=== PATIENT | female | born 1950 | race Caucasian/White ===

== ENCOUNTER 2019-07-08 18:48 | Emergency (ER) | payer MEDICARE ==
[~2019-07-08] VITALS: Ht 165.1 cm; Wt 59.0 kg
[2019-07-08] MEDS ORDERED: FAMOTIDINE 20 MG/2 ML VIAL ONE (19:12)
[2019-07-08] MEDS ORDERED: FAMOTIDINE 20 MG/2 ML VIAL IVP ONE (19:15)
--- NOTE | 2019-07-08 19:16 | PHYS DOC ---
Past Medical History Past Medical History: Diabetes-Type II, GERD, Hypertension Smoking: Less than 1pk/day Adult General Chief Complaint Chief Complaint: CHEST PAIN HPI HPI Patient is a 69 year old female who was brought here by EMS for evaluation of SEVERE substernal chest pain that radiated to her back that been going on all day long today. Patient denies any nausea or vomiting, no trouble breathing. Patient denies any cough or fever. And also complaint of left scapular pain. SHe has history hypertension, diabetic. Patient is a smoker. She has history of enlarged heart. aLL OTHER ros IS NEGATIVE UNLESS OTHERWISE NOTED IN hpi Review of Systems Review of Systems See above Current Medications Current Medications Current Medications Medications (Trade) Dose Ordered Sig/Erin Start Time Stop Time Status Last Admin Dose Admin Famotidine (Pepcid Vial) 20 mg STK-MED ONCE 07/08/19 19:12 07/08/19 19:12 DC Fentanyl Citrate (Fentanyl 2ml Vial) 75 mcg 1X ONCE 07/08/19 22:15 07/08/19 22:16 DC 07/08/19 21:54 75 MCG Hydromorphone HCl (Dilaudid) 1 mg 1X ONCE 07/08/19 22:00 07/08/19 22:01 DC Info (CONTRAST GIVEN -- Rx MONITORING) 1 each PRN DAILY PRN 07/08/19 20:45 07/10/19 20:44 Iohexol (Omnipaque 350 Mg/ml) 100 ml 1X ONCE 07/08/19 20:30 07/08/19 20:33 DC 07/08/19 20:30 100 ML Magnesium Sulfate 50 ml @ 25 mls/hr 1X ONCE 07/08/19 21:30 07/08/19 23:29 07/08/19 21:54 25 MLS/HR Metoprolol Tartrate (Lopressor Vial) 5 mg 1X ONCE 07/08/19 22:30 07/08/19 22:31 DC Multi-Ingredient Mouthwash/Gargle (Gi Cocktail) 20 ml 1X ONCE 07/08/19 20:30 07/08/19 20:31 DC 07/08/19 20:31 20 ML Nicardipine HCl 50 mg/Sodium Chloride 250 ml @ 25 mls/hr CONT PRN 07/08/19 22:45 UNV Nitroglycerin (Nitrostat) 0.4 mg PRN Q5MIN PRN 07/08/19 19:30 07/08/19 19:58 0.4 MG Ondansetron HCl (Zofran) 4 mg 1X ONCE 07/08/19 22:00 07/08/19 22:01 DC Potassium Chloride (Klor-Con) 40 meq 1X ONCE 07/08/19 21:30 07/08/19 21:31 DC 07/08/19 21:54 40 MEQ Allergies Allergies Allergies Coded Allergies Type Severity Reaction Last Updated Verified No Known Drug Allergies 07/08/19 No Physical Exam Physical Exam See above Constitutional: Well developed, well nourished, IN MILD acute distress DUE TO PAIN, non-toxic appearance. [] HENT: Normocephalic, atraumatic, bilateral external ears normal, oropharynx moist, no oral exudates, nose normal. [] Eyes: PERRLA, EOMI, conjunctiva normal, no discharge. [] Neck: Normal range of motion, no tenderness, supple, no stridor. [] Cardiovascular:Heart rate regular rhythm, no murmur, BILATERAL JVD. Lungs & Thorax: Bilateral breath sounds clear to auscultation [] Abdomen: Bowel sounds normal, soft, no tenderness, no masses, no pulsatile masses. [] Skin: Warm, dry, no erythema, no rash. [] Back: No tenderness, no CVA tenderness. [] Extremities: No tenderness, no cyanosis, no clubbing, ROM intact, no edema. [] Neurologic: Alert and oriented X 3, normal motor function, normal sensory function, no focal deficits noted. [] Psychologic: Affect normal, judgement normal, mood normal. [] Current Patient Data Vital Signs Vital Signs Date Time Temp Pulse Resp B/P (MAP) Pulse Ox O2 Delivery O2 Flow Rate FiO2 07/08/19 21:58 92 18 181/96 (124) 98 Nasal Cannula 2.0 07/08/19 18:56 99.0 99.0 Lab Values Laboratory Tests Test 07/08/19 18:55 07/08/19 21:31 White Blood Count 9.8 x10^3/uL (4.0-11.0) Red Blood Count 4.72 x10^6/uL (3.50-5.40) Hemoglobin 14.5 g/dL (12.0-15.5) Hematocrit 42.4 % (36.0-47.0) Mean Corpuscular Volume 90 fL (79-100) Mean Corpuscular Hemoglobin 31 pg (25-35) Mean Corpuscular Hemoglobin Concent 34 g/dL (31-37) Red Cell Distribution Width 13.0 % (11.5-14.5) Platelet Count 302 x10^3/uL (140-400) Neutrophils (%) (Auto) 72 % (31-73) Lymphocytes (%) (Auto) 18 % (24-48) L Monocytes (%) (Auto) 6 % (0-9) Eosinophils (%) (Auto) 3 % (0-3) Basophils (%) (Auto) 1 % (0-3) Neutrophils # (Auto) 7.1 x10^3/uL (1.8-7.7) Lymphocytes # (Auto) 1.8 x10^3/uL (1.0-4.8) Monocytes # (Auto) 0.6 x10^3/uL (0.0-1.1) Eosinophils # (Auto) 0.3 x10^3/uL (0.0-0.7) Basophils # (Auto) 0.1 x10^3/uL (0.0-0.2) Sodium Level 139 mmol/L (136-145) Potassium Level 3.0 mmol/L (3.5-5.1) L Chloride Level 99 mmol/L (98-107) Carbon Dioxide Level 35 mmol/L (21-32) H Anion Gap 5 (6-14) L Blood Urea Nitrogen 16 mg/dL (7-20) Creatinine 0.6 mg/dL (0.6-1.0) Estimated GFR (Cockcroft-Gault) 99.4 BUN/Creatinine Ratio 27 (6-20) H Glucose Level 167 mg/dL (70-99) H Calcium Level 9.4 mg/dL (8.5-10.1) Magnesium Level 1.6 mg/dL (1.8-2.4) L Total Bilirubin 0.3 mg/dL (0.2-1.0) Aspartate Amino Transferase (AST) 22 U/L (15-37) Alanine Aminotransferase (ALT) 23 U/L (14-59) Alkaline Phosphatase 59 U/L (46-116) Troponin I Quantitative < 0.017 ng/mL (0.000-0.055) DT-Wmb-N-Type Natriuretic Peptide 88 pg/mL (0-124) Total Protein 7.6 g/dL (6.4-8.2) Albumin 4.0 g/dL (3.4-5.0) Albumin/Globulin Ratio 1.1 (1.0-1.7) Lipase 114 U/L (73-393) Urine Collection Type Unknown Urine Color Yellow Urine Clarity Cloudy Urine pH 7.0 Urine Specific Phyllis 1.020 Urine Protein Negative mg/dL (NEG-TRACE) Urine Glucose (UA) Negative mg/dL (NEG) Urine Ketones (Stick) Negative mg/dL (NEG) Urine Blood Negative (NEG) Urine Nitrite Negative (NEG) Urine Bilirubin Negative (NEG) Urine Urobilinogen Dipstick 0.2 mg/dL (0.2 mg/dL) Urine Leukocyte Esterase Negative (NEG) Urine RBC 1-2 /HPF (0-2) Urine WBC 1-4 /HPF (0-4) Urine Squamous Epithelial Cells Few /LPF Urine Bacteria 0 /HPF (0-FEW) Urine Mucus Slight /LPF Laboratory Tests 07/08/19 18:55 Laboratory Tests 07/08/19 18:55 EKG EKG EKG WAS READ BY THIS PHYSICIAN AT 1858, RATE OF 82 BPM, INCOMPLETE RBBB, NO STEMI... Radiology/Procedures Radiology/Procedures [][facility] [address] [place] [address] IMAGING REPORT Signed PATIENT: TANI VEGAS LACCOUNT: [id number] : 1950 LOCATION: ER AGE: 69 SEX: F EXAM STATUS: REG ER ORD. PHYSICIAN: HAILEY WALTER DO REASON: CHEST PAIN PROCEDURE: PORTABLE CHEST 1V Indication: Chest pain TECHNIQUE:Portable AP chest X-ray COMPARISON: None FINDINGS: Heart is normal in size. Lungs are clear. No pneumothorax or pleural effusion. Visualized bony thorax within normal limits. IMPRESSION: No acute pulmonary process. Electronically signed by: Nikos Juárez DO (07/08/2019 8:47 PM) [facility] DICTATED and SIGNED BY: NIKOS JUÁREZ DO DATE: 07/08/192046 [facility] [address] [place] [address] IMAGING REPORT Signed PATIENT: TANI VEGAS LACCOUNT: [id number] : 1950 LOCATION: ER AGE: 69 SEX: F EXAM STATUS: REG ER ORD. PHYSICIAN: HAILEY WALTER DO REASON: CHEST PAIN, EPIGASTRIC ABDOMINAL PAIN, PROCEDURE: CT ANGIO CHEST ABD PELVIS Study: 1. CT angiography of the chest 2. CT angiography of the abdomen/pelvis History: Chest pain. Epigastric abdominal pain. Comparison: None. Technique: Helical CT of the chest, abdomen and pelvis performed both prior to and after the administration of 100 cc Omnipaque 350 intravenous contrast utilizing angiography protocol. Coronal and sagittal 3D MIP reformations were obtained. One or more of the following individualized dose reduction techniques were utilized for this examination: 1. Automated exposure control 2. Adjustment of the mA and/or kV according to patient size 3. Use of iterative reconstruction technique. Findings: Chest: Penetrating atheromatous ulcer along the left lateral margin of the descending aorta as seen on image 57 series 4. Associated intramural hematoma extending from the aortic arch at the level of the left internal carotid artery origin and becoming less distinct in the region of the celiac and SMA origins. The great vessel origins are patent. At the arch the hematoma measures approximately 8 mm in thickness. In the region of the diaphragmatic hiatus, crescentic increased density along the anterior margin of the aorta measures approximately 6 mm in thickness. Kinking of the left subclavian artery in the region of the anterior first rib but without significant stenosis. No pericardial effusion. Small right upper lobe nodule on image 40 series 4 measuring 4 mm. Fissural nodule at the right middle lobe on image 63 series 4 measuring 4 mm. Small left thyroid lobe nodule not meeting size criteria for follow-up. Advanced arthrosis at the shoulders. Multifocal degenerative changes scattered throughout the spinal column. Abdomen/pelvis: Multifocal calcified and noncalcified atheromatous plaque throughout the abdominal aorta and bilateral iliofemoral systems. Long segment dilatation of the celiac artery distal to its origin but without stenosis at the origin. Patent SMA origin. Patent RUFINO origin. Single renal artery supply on the right with a patent ostia. Dual renal artery supply on the left without severe ostial stenosis. No focal abnormality of the liver. The gallbladder surgically absent. Unremarkable pancreas. 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 Adrenal gland hyperplasia without discrete nodule. Scattered small renal cystic foci some of which are too small to fully characterize. Focal area of cortical thinning involving the posterior medial aspect of the right kidney suggestive of scarring, image 108 series 4. No hydroureteronephrosis. Regions of the urinary bladder wall thickening. No discrete uterine or adnexal mass. Constipated state with well-formed stool distributed throughout the colon. There is some fluid within the colon proximally. Nonobstructed small bowel. No concerning abnormality of the incompletely evaluated stomach. Lipoma seen extending caudally from the right gluteus medius, image 190 series 4, without aggressive features by CT. Additional fat-containing lesion at the left flank, image 114 series 4 with thin internal septation. Osteopenia. Multifocal degenerative changes. To include severe disc space collapse at L5-S1. IMPRESSION: 1. Penetrating atheromatous ulcer seen within the mid descending aorta (image 57 series 4) with an associated intramural hematoma that extends from the level of the left internal carotid artery origin and becomes somewhat indistinct in the region of the celiac and SMA origins. No findings of aortic rupture. 2. Small pulmonary nodules, as above, which do not meet size criteria for dedicated follow-up. If there are risk factors for lung malignancy, optional CT in 12 months could be performed. 3. Abdominal wall lipoma seen at the left flank region as well as a lipoma seen along the caudal margin of the right gluteus medius both of which do not exhibit suspicious features by CT. Follow-up evaluation with ultrasound or MRI could be performed if growth of these lesions is identified clinically. 4. Several additional chronic findings as detailed above. FOR INTERNAL CODING PURPOSES RESULT CODE: (C) Emergent findings were relayed to Dr. Walter by telephone on 07/08/2019 at 2149 hours. Electronically signed by: RAVINDRA ANTONY MD (07/08/2019 9:49 PM) [facility] DICTATED and SIGNED BY: RAVINDRA ANTONY MD DATE: 07/08/192148 Course & Med Decision Making Course & Med Decision Making Pertinent Labs and Imaging studies reviewed. (See chart for details) There is no cardiothoracic surgery available at this hospital. [facility] WAS CONTACTED, DR. NICOLÁS TOTH, CARDIOTHORACIC SURGEON, REVIEWED CT SCAN, ACCEPTED PATIENT FOR TRANSFER THERE, MEDICAL MANAGEMENT AT THIS TIME. Dragon Disclaimer Dragon Disclaimer This electronic medical record was generated, in whole or in part, using a voice recognition dictation system. The HEART Score for CP Pts HEART Score for Chest Pain: HEART Score for Chest Pain Response (Comments) Value History Highly Suspicious 2 Age > 65 2 Risk Factors >3 Risk Factors or Hx CAD 2 Troponin < Normal Limit 0 Total 6 Risk Factors: Risk Factors: DM, Current or recent (<one month) smoker, HTN, HLP, family history of CAD, obesity. Risk Scores: Score 0 - 3: 2.5% MACE over next 6 weeks - Discharge Home Score 4 - 6: 20.3% MACE over next 6 weeks - Admit for Clinical Observation Score 7 - 10: 72.7% MACE over next 6 weeks - Early Invasive Strategies Departure Departure Impression: Primary Impression: Dissection of descending thoracic aorta Additional Impressions: Chest pain Hypertension Disposition: 02 TRANSFER [facility] (TRANSFERED TO [facility], ACCEPTED BY DR. NICOLÁS TOTH) Condition: STABLE Referrals: YUNIER HAQUE (PCP) Problem Qualifiers HAILEY WALTER DO Jul 08, 2019 19:16
[2019-07-08] MEDS: NITROGLYCERIN SUBLINGUAL 0.4 MG BOTTLE OF 25. SL PRN ×2 (19:39→19:58)
[2019-07-08 19:41] LABS: BASO # 0.1 x10^3/uL (0.0-0.2); BASO % 1 % (0-3); EOS # 0.3 x10^3/uL (0.0-0.7); EOS % 3 % (0-3); HEMATOCRIT 42.4 % (36.0-47.0); HEMOGLOBIN 14.5 g/dL (12.0-15.5); LYMPH # 1.8 x10^3/uL (1.0-4.8); LYMPH % 18 % (24-48); MEAN CORPUSCULAR HEMOGLOBIN 31 pg (25-35); MEAN CORPUSCULAR HGB CONC 34 g/dL (31-37); MEAN CORPUSCULAR VOLUME 90 fL (79-100); MONO # 0.6 x10^3/uL (0.0-1.1); MONO % 6 % (0-9); NEUT # 7.1 x10^3/uL (1.8-7.7); NEUT % 72 % (31-73); PLATELET COUNT 302 x10^3/uL (140-400); RED BLOOD COUNT 4.72 x10^6/uL (3.50-5.40); WHITE BLOOD COUNT 9.8 x10^3/uL (4.0-11.0)
[2019-07-08 19:44] LABS: CALCIUM 9.4 mg/dL (8.5-10.1); CREATININE 0.6 mg/dL (0.6-1.0); GFR 99.4
[2019-07-08 19:50] LABS: ALBUMIN/GLOBULIN RATIO 1.1 (1.0-1.7); MAGNESIUM 1.6 mg/dL (1.8-2.4); TOTAL BILIRUBIN 0.3 mg/dL (0.2-1.0); TOTAL PROTEIN 7.6 g/dL (6.4-8.2)
[2019-07-08] MEDS ORDERED: IOHEXOL 350 MG/ML 100 ML VIAL. IV ONE (20:30)
[2019-07-08] MEDS ORDERED: LIDO:MAALOX 1:1 20 ML SINGLE DOSE. SWSW ONE (20:30)
[2019-07-08] MEDS ORDERED: ONDANSETRON PF 4 MG/2 ML VIAL. ONE (20:35)
[2019-07-08] MEDS ORDERED: CONTRAST GIVEN. MC PRN (20:45)
--- NOTE | 2019-07-08 20:50 | RAD ---
Indication: Chest pain TECHNIQUE:Portable AP chest X-ray COMPARISON: None FINDINGS: Heart is normal in size. Lungs are clear. No pneumothorax or pleural effusion. Visualized bony thorax within normal limits. IMPRESSION: No acute pulmonary process. Electronically signed by: Nikos Juárez DO (07/08/2019 8:47 PM) [facility]
[2019-07-08] MEDS ORDERED: ONDANSETRON PF 4 MG/2 ML VIAL. IV ONE ×2 (21:00→22:00)
[2019-07-08] MEDS ORDERED: POTASSIUM CHLORIDE 10 MEQ TABLET.ER. PO ONE (21:30)
[2019-07-08] MEDS ORDERED: MAGNESIUM SULFATE 2GM 50 ML IV ONE (21:30)
[2019-07-08] MEDS ORDERED: POTASSIUM CHLORIDE 20 MEQ TABLET.ER. PO ONE (21:30)
[2019-07-08] MEDS ORDERED: fentaNYL PF VIAL 100 MCG/2 ML VIAL IM ONE (21:30)
[2019-07-08 21:41] LABS: BILIRUBIN,URINE NEGATIVE (NEG); CLARITY,URINE CLOUDY; COLOR,URINE YELLOW; NITRITE,URINE NEGATIVE (NEG); PROTEIN,URINE NEGATIVE (NEG-TRACE); UROBILINOGEN,URINE 0.2 mg/dL (0.2 mg/dL)
--- NOTE | 2019-07-08 21:52 | RAD ---
Study: 1. CT angiography of the chest 2. CT angiography of the abdomen/pelvis History: Chest pain. Epigastric abdominal pain. Comparison: None. Technique: Helical CT of the chest, abdomen and pelvis performed both prior to and after the administration of 100 cc Omnipaque 350 intravenous contrast utilizing angiography protocol. Coronal and sagittal 3D MIP reformations were obtained. One or more of the following individualized dose reduction techniques were utilized for this examination: 1. Automated exposure control 2. Adjustment of the mA and/or kV according to patient size 3. Use of iterative reconstruction technique. Findings: Chest: Penetrating atheromatous ulcer along the left lateral margin of the descending aorta as seen on image 57 series 4. Associated intramural hematoma extending from the aortic arch at the level of the left internal carotid artery origin and becoming less distinct in the region of the celiac and SMA origins. The great vessel origins are patent. At the arch the hematoma measures approximately 8 mm in thickness. In the region of the diaphragmatic hiatus, crescentic increased density along the anterior margin of the aorta measures approximately 6 mm in thickness. Kinking of the left subclavian artery in the region of the anterior first rib but without significant stenosis. No pericardial effusion. Small right upper lobe nodule on image 40 series 4 measuring 4 mm. Fissural nodule at the right middle lobe on image 63 series 4 measuring 4 mm. Small left thyroid lobe nodule not meeting size criteria for follow-up. Advanced arthrosis at the shoulders. Multifocal degenerative changes scattered throughout the spinal column. Abdomen/pelvis: Multifocal calcified and noncalcified atheromatous plaque throughout the abdominal aorta and bilateral iliofemoral systems. Long segment dilatation of the celiac artery distal to its origin but without stenosis at the origin. Patent SMA origin. Patent RUFINO origin. Single renal artery supply on the right with a patent ostia. Dual renal artery supply on the left without severe ostial stenosis. No focal abnormality of the liver. The gallbladder surgically absent. Unremarkable pancreas. 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 Adrenal gland hyperplasia without discrete nodule. Scattered small renal cystic foci some of which are too small to fully characterize. Focal area of cortical thinning involving the posterior medial aspect of the right kidney suggestive of scarring, image 108 series 4. No hydroureteronephrosis. Regions of the urinary bladder wall thickening. No discrete uterine or adnexal mass. Constipated state with well-formed stool distributed throughout the colon. There is some fluid within the colon proximally. Nonobstructed small bowel. No concerning abnormality of the incompletely evaluated stomach. Lipoma seen extending caudally from the right gluteus medius, image 190 series 4, without aggressive features by CT. Additional fat-containing lesion at the left flank, image 114 series 4 with thin internal septation. Osteopenia. Multifocal degenerative changes. To include severe disc space collapse at L5-S1. IMPRESSION: 1. Penetrating atheromatous ulcer seen within the mid descending aorta (image 57 series 4) with an associated intramural hematoma that extends from the level of the left internal carotid artery origin and becomes somewhat indistinct in the region of the celiac and SMA origins. No findings of aortic rupture. 2. Small pulmonary nodules, as above, which do not meet size criteria for dedicated follow-up. If there are risk factors for lung malignancy, optional CT in 12 months could be performed. 3. Abdominal wall lipoma seen at the left flank region as well as a lipoma seen along the caudal margin of the right gluteus medius both of which do not exhibit suspicious features by CT. Follow-up evaluation with ultrasound or MRI could be performed if growth of these lesions is identified clinically. 4. Several additional chronic findings as detailed above. FOR INTERNAL CODING PURPOSES RESULT CODE: (C) Emergent findings were relayed to Dr. Rehman by telephone on 07/08/2019 at 2149 hours. Electronically signed by: RAVINDRA ANTONY MD (07/08/2019 9:49 PM) [facility] [place]
[2019-07-08] MEDS ORDERED: HYDROmorphone 2 MG/ML VIAL IV ONE (22:00)
[2019-07-08 22:03] LABS: BACTERIA,URINE 0 /HPF (0-FEW); SQUAMOUS EPITHELIAL CELL,UR FEW /LPF
[2019-07-08] MEDS ORDERED: fentaNYL PF VIAL 100 MCG/2 ML VIAL IVP ONE (22:15)
[2019-07-08] MEDS ORDERED: METOPROLOL TARTRATE 5 MG/5 ML VIAL. IVP ONE (22:30)
[2019-07-08 22:39] VITALS: BP 185/97
--- NOTE | 2019-07-09 07:31 | EKG ---
[facility] [address] [place] [address] Test Date: 2019-07-08 Test Time: 18:56:41 Pat Name: TANI VEGAS Department: Room: Gender: F Creche Attendant: : 1950 Requested By: HAILEY WALTER Order Number: [id number] Reading MD: Measurements Intervals [place] Rate: 81 P: 18 RI: 172 QRS: -6 QRSD: 84 T: 24 QT: 366 QTc: 430 Interpretive Statements SINUS RHYTHM LEFT ATRIAL ABNORMALITY LEFTWARD AXIS INCOMPLETE RIGHT BUNDLE BRANCH BLOCK T ABNORMALITY IN HIGH LATERAL LEADS ABNORMAL ECG No previous ECG available for comparison
== END 2019-07-08 23:05 | disposition short-term general hospital (02) ==
LOC: ER 18:48
DX: I71.01 Dissection of thoracic aorta (principal); R07.2 Precordial pain; I10 Essential (primary) hypertension; E11.9 Type 2 diabetes mellitus without complications; K21.9 Gastro-esophageal reflux disease without esophagitis; F17.200 Nicotine dependence, unspecified, uncomplicated
CPT/HCPCS: 36415; 71045; 71275; 74174; 80053; 81001; 83690; 83735; 83880; 84484; 85025; 93005; 96365; 96375; 99285; J2405; J3010; J3475; J3490; Q9967